=== PATIENT | female | born 1975 | race Caucasian/White ===

== ENCOUNTER 2020-09-18 17:26 | Emergency (ER) | payer MEDICARE ==
[2020-09-18] MEDS ORDERED: HYDROcodone/ACETAMINOPHEN 5-325 MG TAB PO ONE (17:38)
[2020-09-18 17:43] VITALS: BP 112/56
--- NOTE | 2020-09-18 18:36 | XRay Report ---
RIGHT HAND 3 VIEWS INDICATION / CLINICAL INFORMATION: Right hand injury after fall. COMPARISON: None available. FINDINGS: BONES and JOINT(S): No acute fracture or subluxation. No significant arthritis. SOFT TISSUES: No significant abnormality. ADDITIONAL FINDINGS: None. IMPRESSION: 1. No acute findings. Signer Name: Kvng Weaver MD Signed: 09/18/2020 6:31 PM Workstation Name: [id number]
[2020-09-18] MEDS ORDERED: IBUPROFEN 600 MG TAB PO ONE (19:03)
--- NOTE | 2020-09-18 19:06 | Emergency Department Report ---
ED Upper Extremity Inj HPI - General Chief Complaint: Extremity Injury, Upper Stated Complaint: POSS BROKEN RIGHT ARM Time Seen by Provider: 09/18/20 18:01 Source: patient Mode of arrival: Ambulatory Limitations: No Limitations - History of Present Illness Initial Comments: Patient is a 45-year-old female presents emergency room with complaints of a rig ht hand/wrist injury that occurred just prior to arrival. Patient states that she was chasing after her dog and excellently slipped and fell. States that she caught herself on outstretched hand. She denies ever injuring in the past. She denies any numbness or weakness. She has a past medical history of pacemaker and aortic valve replacement. No allergies to medications. She had a hysterectomy. - Related Data Previous Rx's Medication Instructions Recorded Last Taken Type Ibuprofen [Motrin 600 MG tab] 600 mg PO Q8H PRN #20 tablet 09/18/20 Unknown Rx traMADoL [Ultram 50 MG tab] 50 mg PO Q6HR PRN #12 tablet 09/18/20 Unknown Rx Allergies Allergy/AdvReac Type Severity Reaction Status Date / Time No Known Allergies Allergy Unverified 09/18/20 17:29 ED Review of Systems ROS: Stated complaint: POSS BROKEN RIGHT ARM Other details as noted in HPI Comment: All other systems reviewed and negative ED Past Medical Hx - Past Medical History Previous Medical History?: Yes Hx Heart Attack/AMI: Yes (Open heart surgery) Additional medical history: Adrenal insufficiency/ aortic valve problems - Surgical History Past Surgical History?: Yes Additional Surgical History: Open heart surgery x 2 - Medications Home Medications: Home Medications Medication Instructions Recorded Confirmed Last Taken Type Ibuprofen [Motrin 600 MG tab] 600 mg PO Q8H PRN #20 tablet 09/18/20 Unknown Rx traMADoL [Ultram 50 MG tab] 50 mg PO Q6HR PRN #12 tablet 09/18/20 Unknown Rx ED Physical Exam - General Limitations: No Limitations General appearance: alert, in no apparent distress - Head Head exam: Present: atraumatic, normocephalic - Eye Eye exam: Present: normal appearance - ENT ENT exam: Present: mucous membranes moist - Extremities Exam Extremities exam: Present: other (ttp to the dorsal right hand and right wrist, no obvious deformity, full passive ROM of the RUE, neurovasculalry intact) - Neurological Exam Neurological exam: Present: alert, oriented X3 - Psychiatric Psychiatric exam: Present: normal affect, normal mood - Skin Skin exam: Present: warm, dry, intact ED Course Vital Signs 09/18/20 17:42 Temperature 98.4 F Pulse Rate 85 Respiratory 20 Rate Blood Pressure 112/56 [Right] O2 Sat by Pulse 97 Oximetry ED Medical Decision Making - Radiology Data Radiology results: report reviewed, image reviewed - Medical Decision Making Patient is a 45-year-old female presents emergency room with complaints of a right hand/wrist injury that occurred just prior to arrival. Patient states that she was chasing after her dog and excellently slipped and fell. States that she caught herself on outstretched hand. She denies ever injuring in the past. She denies any numbness or weakness. She has a past medical history of pacemaker and aortic valve replacement. No allergies to medications. She had a hysterectomy. Vitals are normal. On exam:ttp to the dorsal right hand and ri ght wrist, no obvious deformity, full passive ROM of the RUE, neurovasculalry intact. X-ray right hand which includes views of wrist shows no acute findings. Discussed all results with patient and answer questions. Due to point tenderness patient was placed in volar splint and will be given orthopedic follow-up. Advised patient Please take medication as prescribed as needed. Do not drive or operate heavy machinery while taking severe pain medication. Follow-up with orthopedic doctor. Return to emergency room for new or worsening symptoms. Critical care attestation.: If time is entered above; I have spent that time in minutes in the direct care of this critically ill patient, excluding procedure time. ED Disposition Clinical Impression: Injury of right hand Qualifiers: Encounter type: initial encounter Qualified Code(s): S69.91XA - Unspecified injury of right wrist, hand and finger(s), initial encounter Right wrist injury Qualifiers: Encounter type: initial encounter Qualified Code(s): S69.91XA - Unspecified injury of right wrist, hand and finger(s), initial encounter Disposition: DC-01 TO HOME OR SELFCARE Is pt being admited?: No Does the pt Need Aspirin: No Condition: Stable Additional Instructions: Please take medication as prescribed as needed. Do not drive or operate heavy machinery while taking severe pain medication. Follow-up with orthopedic doctor. Return to emergency room for new or worsening symptoms. Prescriptions: Ibuprofen [Motrin 600 MG tab] 600 mg PO Q8H PRN #20 tablet PRN Reason: Pain traMADoL [Ultram 50 MG tab] 50 mg PO Q6HR PRN #12 tablet PRN Reason: Pain , Severe (7-10) Referrals: RYAN MIRZA MD [Staff Physician] - 2-3 Days [facility] - 2-3 Days Time of Disposition: 19:05 Print Language: CYMRO
== END 2020-09-18 20:13 | disposition home or self-care (01) ==
LOC: ED 17:26
DX: S69.91XA Unspecified injury of right wrist, hand and finger(s), initial encounter (principal); I25.2 Old myocardial infarction; Z98.890 Other specified postprocedural states; Z79.1 Long term (current) use of non-steroidal anti-inflammatories (NSAID); Z79.899 Other long term (current) drug therapy; W01.0XXA Fall on same level from slipping, tripping and stumbling without subsequent striking against object, initial encounter; Y93.89 Activity, other specified; Y92.89 Other specified places as the place of occurrence of the external cause; Y99.8 Other external cause status